=== PATIENT | female | born 1980 | race Asian ===

== ENCOUNTER 2024-12-20 17:49 | Emergency (ER) | payer BC ==
[2024-12-20] MEDS ORDERED: Iopamidol 755 Mg/ML 100 ML Bottle IVPUSH ONE (17:53)
[2024-12-20] MEDS ORDERED: Tranexamic Acid 1,000 MG in Sodium Chloride 0.9% 100 ML IV ONE (18:06)
[2024-12-20 18:08] LABS: BASOPHILS PERCENT AUTO 0.3 % (0.0-1.0); EOSINOPHILS PERCENT AUTO 2.5 % (1.0-3.0); HEMATOCRIT 44.6 % (37.0-47.0); HEMOGLOBIN 15.4 g/dL (12.0-16.0); LYMPHOCYTES PERCENT AUTO 47.5 % (20.5-50.1); MEAN CORPUSCULAR HEMOGLOBIN 29.8 pg (27.0-34.0); MEAN CORPUSCULAR HGB CONC 34.5 g/dL (33.0-35.0); MEAN CORPUSCULAR VOLUME 86.3 fL (80-100); MONOCYTES PERCENT AUTO 8.6 % (2-8); NEUTROPHILS PERCENT AUTO 41.1 % (42.2-75.2); PLATELET COUNT,PLT 371 10^3/uL (150-450); RED BLOOD CELL COUNT 5.17 10^6/uL (4.2-5.4); WHITE BLOOD CELL COUNT,WBC 10.3 10^3/uL (5.0-10.0)
[2024-12-20 18:32] LABS: A/G RATIO 0.9; ALANINE AMINOTRANSFERASE,ALT 27 U/L (14-59); ALKALINE PHOSPHATASE 69 U/L (46-116); ASPARTATE AMNIOTRANSFERASE,AST 24 U/L (15-37); BILIRUBIN TOTAL 0.3 mg/dL (0.2-1.0); BLOOD UREA NITROGEN,BUN 13 mg/dL (7-18); CALCIUM 8.8 mg/dL (8.5-10.1); CARBON DIOXIDE,CO2 26 mmol/L (21-32); GLUCOSE RANDOM 125 mg/dL (70-99); PROTEIN TOTAL,TP 8.7 g/dL (6.4-8.2)
[2024-12-20 18:36] LABS: ANION GAP 15.3 mEq/L (7-13); CHLORIDE,CL 101 mmol/L (98-107); POTASSIUM,K 3.3 mmol/L (3.5-5.1); SODIUM,NA 139 mmol/L (136-145)
[2024-12-20 18:38] LABS: INR 0.9 (0.9-1.2); PROTHROMBIN TIME 9.9 SEC (9.0-12.0); PTT,PARTIAL THROMBOPLSTIN TIME 23.3 SEC (22.0-34.0)
[2024-12-20 18:45] LABS: ESTIMATED GFR 71 mL/min (>=60)
[2024-12-20] MEDS: levETIRAcetam in NaCl (iso-os) 1,000 MG in Premix Bag 1 BAG IV ONE (18:57)
[2024-12-20] MEDS: Lactated Ringers 1,000 ML IV ONE (19:05)
[2024-12-20] MEDS ORDERED: Rocuronium 100 MG/10 ML MDV IVPUSH ONE ×2 (19:07→21:41)
[2024-12-20] MEDS ORDERED: Etomidate 2 MG/ML 10 ML SDV IVPUSH ONE (19:07)
[2024-12-20] MEDS: Norepinephrine Bit/D5W Premix 250 ML IV SCH (19:08)
[2024-12-20] MEDS ORDERED: propofoL 1,000 MG/100 ML 100 ML IV SCH (19:15)
[2024-12-20] MEDS ORDERED: Midazolam 1 MG/ML 2 ML SDV IVPUSH ONE (19:33)
[2024-12-20] MEDS ORDERED: Midazolam 1 MG/ML 2 ML SDV ONE (19:33)
== END 2024-12-20 19:45 ==
LOC: DL.ED 17:49
DX: I62.9 Nontraumatic intracranial hemorrhage, unspecified (principal); I10 Essential (primary) hypertension; Z86.73 Personal history of transient ischemic attack (TIA), and cerebral infarction without residual deficits
CPT/HCPCS: 31500; 36415; 51702; 70450; 71045; 80053; 82947; 84443; 84484; 84703; 85025; 85610; 85730; 94762; 96365; 96368; 96375; 99291; J1953; J7120